=== PATIENT | female | born 1965 | race American Indian/Alaskan Native ===

== ENCOUNTER 2019-02-09 12:02 | Emergency (ER) | payer MEDICAID ==
[~2019-02-09] VITALS: Ht 157.5 cm; Wt 60.0 kg
[2019-02-09 12:48] LABS: BASOPHILS # (AUTO) 0.1 X10'3 (0-0.2); EOSINOPHILS # (AUTO) 0.3 X10'3 (0-0.9); HEMOGLOBIN 13.7 g/dl (12.0-16.0); LYMPHOCYTES # (AUTO) 1.7 X10'3 (1.1-4.8); MEAN CORPUSCULAR HGB CONC 33.4 g/dL (33.0-36.5); NEUTROPHILS # (AUTO) 1.8 X10'3 (1.8-7.7); WHITE BLOOD COUNT 4.7 X10'3 (4.5-11.0)
[2019-02-09 12:52] LABS: BASOPHILS % (AUTO) 1.3 % (0-1); EOSINOPHILS % (AUTO) 5.9 % (0-6); HEMATOCRIT 40.9 % (35.0-45.0); LYMPHOCYTES % (AUTO) 35.3 % (21-51); MEAN CORPUSCULAR HEMOGLOBIN 29.1 PG (27.0-31.0); MEAN CORPUSCULAR VOLUME 87.1 FL (78-98); MEAN PLATELET VOLUME 8.1 FL (7.4-10.4); MONOCYTES # (AUTO) 0.9 X10'3 (0-0.9); MONOCYTES % (AUTO) 18.3 % (2-12); NEUTROPHILS % (AUTO) 39.2 % (42-75); PLATELET COUNT 124 X10'3 (140-440); RED CELL DISTRIBUTION WIDTH 19.8 % (11.5-14.5)
[2019-02-09 13:06] LABS: PARTIAL THROMBOPLASTIN TIME 27 SECONDS (22-32)
[2019-02-09 13:11] LABS: ALANINE AMINOTRANSFERASE 16 U/L (12-78); ALBUMIN 3.6 G/DL (3.4-5.0); ALBUMIN/GLOBULIN RATIO 0.9 (1.1-1.5); ALKALINE PHOSPHATASE 88 IU/L (46-116); ANION GAP 13 (8-16); ASPARTATE AMINO TRANSFERASE 21 U/L (10-37); BILIRUBIN,TOTAL 1.6 MG/DL (0.1-1.0); BLOOD UREA NITROGEN 19 MG/DL (7-18); BUN/CREATININE RATIO 19.6 (6.6-38.0); CALCIUM 8.4 MG/DL (8.5-10.1); CHLORIDE 106 MMOL/L (99-107); CREATININE 0.97 MG/DL (0.40-0.90); GLUCOSE 80 MG/DL (70-104); SODIUM 142 MMOL/L (135-145); TOTAL CARBON DIOXIDE 23.4 MMOL/L (24-32); TOTAL PROTEIN 7.6 G/DL (6.4-8.2); eGFR 61 ML/MIN
[2019-02-09] MEDS ORDERED: HYDROcodone/acetaminophen 10/325mg tab PO ONE (13:15)
[2019-02-09] MEDS ORDERED: morphine 4 MG/ML inj SYRINge IM ONE (13:15)
[2019-02-09 13:22] LABS: CLARITY,URINE CLEAR (Clear); COLOR,URINE YELLOW (Yellow); GLUCOSE, URINE 100 mg/dl (Neg); KETONES,URINE NEGATIVE (Neg); LEUKOCYTE ESTERASE ,URINE NEGATIVE (Neg); NITRITES, URINE NEGATIVE (Neg); OCCULT BLOOD,URINE NEGATIVE (Neg); PROTEIN,URINE NEGATIVE (Neg)
[2019-02-09 13:26] LABS: POTASSIUM 2.5 MMOL/L (3.5-5.1)
--- NOTE | 2019-02-09 13:28 | NUR ---
DR HENDERSON NOTIFIED OF PT POTASSIUM 2.5, VERBAL ORDER RECEIVED 40 MEQ PO POTASSIUM AND IF ABLE TO ESTABLISH IV 10 MEQ IV POTASSIUM, PRIMARY NURSE KAT NOTIFIED.
[2019-02-09 13:29] LABS: UA COLLECTION TYPE CLN CATCH MIDSTREAM
[2019-02-09] MEDS ORDERED: potassium Cl 20 mEq SR tablet PO STA (13:29)
[2019-02-09] MEDS ORDERED: potassium Cl 10 mEq/100mL bag IV ONE (13:30)
--- NOTE | 2019-02-09 13:35 | NUR ---
PT TO XRAY WITH MEDICAL PHYSICIST VIA WHEELCHAIR PER ORDERS NOW.
[2019-02-09 13:48] LABS: PLATELET ESTIMATE DECREASED
[2019-02-09 13:50] LABS: ANISOCYTOSIS 1+
[2019-02-09] MEDS ORDERED: POTA20TA19 PO (15:02)
[2019-02-09] MEDS ORDERED: LACT10SO PO (15:02)
[2019-02-09] MEDS ORDERED: HYDR-3965 PO (15:31)
[2019-02-09 15:43] VITALS: BP 102/58
== END 2019-02-09 15:43 | disposition home or self-care (01) ==
LOC: ER 12:08
DX: R53.1 Weakness (principal); E87.6 Hypokalemia; K72.10 Chronic hepatic failure without coma; G89.29 Other chronic pain; F12.90 Cannabis use, unspecified, uncomplicated; Z88.5 Allergy status to narcotic agent; Z88.1 Allergy status to other antibiotic agents; Z88.0 Allergy status to penicillin; Z79.899 Other long term (current) drug therapy
CPT/HCPCS: 36415; 71045; 72100; 72170; 80053; 80320; 81003; 82140; 84484; 85025; 85610; 85730; 93005; 96365; 96372; 99284; J2270; J3480